=== PATIENT | female | born 1995 | race Hispanic/Latino ===

== ENCOUNTER 2023-09-14 12:30 | Inpatient (IN) | payer BC, OTHER, SELFPAY ==
[2023-09-14] MEDS ORDERED: hydrALAZINE 20 MG/ML VIAL SLOW IVP PRN ×2 (13:00→17:22)
[2023-09-14 13:05] VITALS: BMI 29.7
[2023-09-14 14:26] LABS: Bilirubin Neg (Negative); Blood, Urine 10 (Negative); Clarity Clear (Clear); Glucose, Urine (Dipstick) Normal (Negative); Ketone, Urine 15 mg/dL (Negative); Leukocyte 100 (Negative); Nitrite Negative (Negative); Protein, Urine (Dipstick) Negative (Neg-Trace); Specific Gravity, Urine 1.005 (1.005-1.030); Urobilinogen Normal mg/dL (Less than 2)
[2023-09-14 15:12] LABS: CAUTI Indications for Culture Pregnancy; RBC/HPF 0-3 HPF (0-3); Renal Epithelial 0-3 HPF (None Seen); Squamous Epithelial 0-3 HPF (0-3); Transitional Epithelial 0-3 HPF (None Seen)
[2023-09-14 15:13] LABS: Bacteria/HPF 1+ HPF (None Seen)
[2023-09-14 15:14] LABS: Urine Culture Reflex Yes Yes
[2023-09-14] MEDS ORDERED: Lactated Ringer's 1,000 ML IV SCH (15:45)
[2023-09-14] MEDS ORDERED: Nitrofurantoin Monohyd/M-Cryst 100 MG CAP PO SCH ×2 (16:00→16:45)
[2023-09-14] MEDS ORDERED: cefTRIAXone\\ROCEPHIN 1 GM in Sodium Chloride 0.9% 100 ML IVPB SCH (16:00)
[2023-09-14] MEDS ORDERED: Diphenoxylate HCl/Atropine Tablet PO PRN (17:22)
[2023-09-14] MEDS ORDERED: Lidocaine 1% (PF) 30 ML VIAL SC PRN (17:22)
[2023-09-14] MEDS ORDERED: Tranexamic Acid 1,000 MG/10 ML VIAL IVP PRN (17:22)
[2023-09-14] MEDS ORDERED: Methylergonovine 0.2 MG/ML VIAL IM PRN (17:22)
[2023-09-14] MEDS ORDERED: fentaNYL 50 mcg/mL 1 mL Vial SLOW IVP PRN (17:22)
[2023-09-14] MEDS ORDERED: Misoprostol 200 MCG TAB PR PRN (17:22)
[2023-09-14] MEDS ORDERED: Ondansetron PF 4 MG/2 ML Vial IVP PRN (17:22)
[2023-09-14] MEDS ORDERED: Carboprost 250 MCG/ML AMP IM PRN (17:22)
[2023-09-14] MEDS ORDERED: Acetaminophen 500 MG TAB PO PRN (17:22)
[2023-09-14] MEDS ORDERED: Promethazine HCl 25 MG/ML VIAL IM PRN (17:22)
[2023-09-14] MEDS ORDERED: Oxytocin 30 units/NS 500 ML 500 ML IV SCH (17:30)
[2023-09-14 18:04] LABS: Hematocrit 29.5 % (34.9-44.5); Hemoglobin 9.6 g/dL (12.0-15.5); Mean Corpuscular Volume 80.8 fl (81.6-98.3); Red Blood Cell (RBC) Count 3.65 10x6/uL (3.90-5.03); White Blood Cell (WBC) Count 6.3 10x3/uL (3.5-10.5)
[2023-09-14] MEDS: Penicillin G Potassium 5 MILL.UNITS in Sodium Chloride 0.9% 100 ML IVPB SCH (18:04)
[2023-09-14 18:05] LABS: Mean Corpuscular HGB CONC 32.5 g/dL (32.0-36.0); Mean Corpuscular Hemoglobin 26.3 pg (27.0-33.0); Mean Platelet Volume 10.5 fl (7.4-10.4); Platelet Count 338 10x3/uL (150-450); RBC Distribution Width 14.1 % (11.5-14.5)
[2023-09-14 18:31] LABS: HBSAg Index 0.25 S/CO (0-0.99); Hep B Surf Ag - L&D Non-Reactive S/CO (NonReactive); Syphilis Antibody Nonreactive (Nonreactive)
[2023-09-15] MEDS: Penicillin G 2.5 MILL.units 2.5 MILL.UNITS in Premix 1 BAG IVPB SCH (01:25)
[2023-09-15] MEDS: Dextrose 5%-Lactated Ringers 1,000 ML IV SCH (05:41)
[2023-09-15] MEDS ORDERED: Bupivacaine 0.25% HCL 30 ML VIAL ONE (08:00)
[2023-09-15] MEDS: Oxytocin 30 units/NS 500 ML 500 ML IV SCH (08:29)
[2023-09-15] MEDS: Sodium Chloride 0.9% 1,000 ML IV SCH (08:37)
[2023-09-15] MEDS: fentaNYL/Ropivacaine Epidural 100 ML ONE (09:10)
[2023-09-15] MEDS: Lactated Ringer's 1,000 ML IV SCH (11:44)
[2023-09-15] MEDS ORDERED: Lanolin Ointment 7 GM TUBE TOP PRN (17:58)
[2023-09-15] MEDS ORDERED: Preparation H Ointment 28 GM TUBE PR PRN (17:58)
[2023-09-15] MEDS ORDERED: Benzocaine-Menthol 82.5 ML CAN TOP PRN (17:58)
[2023-09-15] MEDS ORDERED: Milk Of Magnesia 30 ML UDCUP PO PRN (17:58)
[2023-09-15] MEDS ORDERED: Boostrix 0.5 ML (Tdap) VIAL (>/=7 yrs of age) IM ONE (17:58)
[2023-09-15] MEDS ORDERED: diphenhydrAMINE 25 MG CAP PO PRN (17:58)
[2023-09-15] MEDS ORDERED: Misoprostol 200 MCG TAB VAG PRN (17:58)
[2023-09-15] MEDS ORDERED: Zolpidem Tartrate 5 MG TAB PO PRN (17:58)
[2023-09-15] MEDS ORDERED: Bisacodyl 10 MG SUPP PR PRN (17:58)
[2023-09-15] MEDS ORDERED: Ondansetron PF 4 MG/2 ML Vial IVP PRN (17:58)
[2023-09-15] MEDS ORDERED: hydrALAZINE 20 MG/ML VIAL SLOW IVP PRN (17:58)
[2023-09-15] MEDS ORDERED: Oxytocin 30 units/NS 500 ML 500 ML IV SCH (18:00)
[2023-09-15] MEDS: Docusate 100 MG CAP PO SCH (21:13)
[2023-09-16 03:23] LABS: Hematocrit 29.3 % (34.9-44.5); Hemoglobin 9.2 g/dL (12.0-15.5); Mean Corpuscular HGB CONC 31.4 g/dL (32.0-36.0); Mean Corpuscular Hemoglobin 25.6 pg (27.0-33.0); Mean Corpuscular Volume 81.4 fl (81.6-98.3); Platelet Count 280 10x3/uL (150-450); RBC Distribution Width 13.9 % (11.5-14.5); White Blood Cell (WBC) Count 8.6 10x3/uL (3.5-10.5)
[2023-09-16] MEDS: HYDROcodone/Acetaminophen 5/325 mg Tablet PO PRN ×2 (03:40→07:43)
[2023-09-16] MEDS: Ibuprofen 800 MG TAB PO SCH (03:41)
[2023-09-16] MEDS: Ferrous Sulfate 325 MG TAB PO SCH (07:43)
[2023-09-16] MEDS: Prenatal Vitamin 1 TAB PO SCH (07:43)
[2023-09-17 08:34] VITALS: BP 106/61; TEMP 97.8
== END 2023-09-17 16:27 | disposition home or self-care (01) | DRG 806 ==
LOC: CSHLD/OP 12:30 → CSHLD 17:22 → CSHPP 09-15 20:32
PROVIDERS: ADMIT Obstetrics & Gynecology; ATTEND Obstetrics & Gynecology
PROC: 10E0XZZ Delivery of Products of Conception, External Approach (ICD-10-PCS; principal; 2023-09-15)
PROC: 10907ZC Drainage of Amniotic Fluid, Therapeutic from Products of Conception, Via Natural or Artificial Opening (ICD-10-PCS; 2023-09-15)
PROC: 10H07YZ Insertion of Other Device into Products of Conception, Via Natural or Artificial Opening (ICD-10-PCS; 2023-09-15)
DX: O34.211 Maternal care for low transverse scar from previous cesarean delivery (principal); N39.0 Urinary tract infection, site not specified; Z37.0 Single live birth; O23.43 Unspecified infection of urinary tract in pregnancy, third trimester; O99.354 Diseases of the nervous system complicating childbirth; Z3A.36 36 weeks gestation of pregnancy; O99.824 Streptococcus B carrier state complicating childbirth; G43.909 Migraine, unspecified, not intractable, without status migrainosus
CPT/HCPCS: 36415; 51702; 81001; 85027; 86780; 86850; 86900; 86901; 87086; 87340; 99285; J0665; J0696; J2540; J2590; J3490; J7050; J7120